=== PATIENT | male | born 1935 | race Hispanic/Latino ===

== ENCOUNTER 2021-04-21 06:07 | Day surgery (SDC) | payer MEDICARE ==
[2021-04-17 11:38] LABS: Hematocrit 43.4 % (35.5-45.6); Hemoglobin 14.4 gm/dl (11.8-15.2); Mean Corpuscular HGB Conc 33 % (32-34); Mean Corpuscular Volume 88 fl (84-94); Platelet Count 224 K/mm3 (140-440); Red Blood Count 4.91 M/mm3 (3.65-5.03); Red Cell Distribution Width 17.6 % (13.2-15.2)
[2021-04-17 12:20] LABS: Alanine Aminotransferase 10 units/L (7-56); Albumin 4.4 g/dL (3.9-5); BUN/Creatinine Ratio 23; Blood Urea Nitrogen 18 mg/dL (9-20); Calcium 9.9 mg/dL (8.4-10.2); Hemolysis Index 2
[2021-04-21] MEDS ORDERED: LACTATED RINGERS 1,000 ML ONE (07:00)
--- NOTE | 2021-04-21 07:28 | Anesthesia Consultation ---
Anesthesia Consult and Med Hx Date of service: 04/21/21 - Airway Anesthetic Teeth Evaluation: Good, Bridges (left upper) ROM Head & Neck: Adequate Mental/Hyoid Distance: Adequate Mallampati Class: Class II Intubation Access Assessment: Probably Good - Pre-Operative Health Status ASA Pre-Surgery Classification: ASA3 Proposed Anesthetic Plan: General - Pulmonary Hx Smoking: Yes (STOPPED 1966) Hx Sleep Apnea: No (IDRIS PRE SCREEN HIGH RISK) - Cardiovascular System Hx Hypertension: Yes (2003) Hx Coronary Artery Disease: Yes (HX LEFT ATRIAL ENLARGEMENT) Hx Heart Attack/AMI: No (CABG x4, 2004) Hx Percutaneous Transluminal Coronary Angioplasty (PTCA): Yes (x1, 2005, EF-50-55%) Hx Peripheral Vascular Disease: Yes (MERYL LEGS) - Central Nervous System Hx Back Pain: Yes (s/p lumbar fusion) Hx Psychiatric Problems: No - Gastrointestinal Hx Gastroesophageal Reflux Disease: Yes (under control) - Endocrine Hx Cirrhosis: No Hx Liver Disease: No (pancreatitis) Hx Non-Insulin Dependent Diabetes: Yes - Hematic Hx Anemia: No - Other Systems Hx Cancer: No
--- NOTE | 2021-04-21 07:30 | Anesthesia Day of Surgery ---
Anesthesia Day of Surgery - Day of Surgery Patient Examined: Yes Patient H&P Reviewed: Yes Patient is NPO: Yes Beta Blockers: Yes Cardiac Clearance: Yes
[2021-04-21] MEDS ORDERED: ONDANSETRON 4 MG/2 ML INJ IV PRN (07:33)
[2021-04-21] MEDS ORDERED: HYDROmorphone 1 MG/1 ML INJ IV PRN ×2 (07:33→08:00)
[2021-04-21] MEDS ORDERED: propofoL 200 MG/20 ML VIAL IV ONE (07:35)
[2021-04-21] MEDS ORDERED: ROCURONIUM 50 MG/5 ML INJ IV ONE (07:39)
[2021-04-21] MEDS ORDERED: LIDOCAINE MPF (2%) 20 MG/1 ML VIAL 5 ML ONE (07:39)
[2021-04-21] MEDS ORDERED: FAMOTIDINE 20 MG/2 ML INJ IV NR (08:00)
[2021-04-21] MEDS ORDERED: LACTATED RINGERS 1,000 ML IV SCH (08:00)
[2021-04-21] MEDS ORDERED: NEOMY 40 MG/POLYMYXIN B 200,000 UNITS/ML (GU) AMPULE IR ONE ×2 (09:00)
[2021-04-21] MEDS ORDERED: SODIUM CHLORIDE 0.9% IRR 1,500 ML BOTTLE IR ONE (09:00)
[2021-04-21] MEDS ORDERED: BUPIVACAINE/PF (0.25%) 2.5 MG/ML 30 ML VIAL INFILTRATI ONE (09:00)
[2021-04-21] MEDS ORDERED: GLYCOPYRROLATE 0.4 MG/2 ML INJ ONE (09:25)
[2021-04-21] MEDS ORDERED: ONDANSETRON 4 MG/2 ML INJ ONE (09:25)
[2021-04-21] MEDS ORDERED: NEOSTIGMINE 10MG/10 ML INJ MDV ONE (09:26)
--- NOTE | 2021-04-21 10:22 | Discharge Summary ---
Short Stay Discharge Plan Activity: other (no straining ) Weight Bearing Status: Full Weight Bearing Diet: low fat, low cholesterol, low salt Wound: open to air Special Instructions: other (ice x 24 hrs ) Durable Medical Equipment Needed Upon Discharge: other (remove dressing in am ) Follow up with: KARLA JOEL MD [Primary Care Provider] - 7 Days PAVEL COATS MD [Staff Physician] - 7 Days
--- NOTE | 2021-04-21 10:23 | Post Operative Note ---
Pre-op diagnosis: rih Findings: large rih Procedure: rih repair Anesthesia: GETA Surgeon: PAVEL COATS Photoengraving Machine Operator/Tender: HAKAN MENG Estimated blood loss: minimal Pathology: list (sac) Specimen disposition: to lab Condition: stable Disposition: PACU
--- NOTE | 2021-04-21 10:47 | Operative Report ---
DATE OF SURGERY: 04/21/2021 PREOPERATIVE DIAGNOSES: Large painful right inguinal hernia. POSTOPERATIVE DIAGNOSES: Large painful right inguinal hernia. PROCEDURE: Right inguinal hernia repair with a plug and mesh. SURGEON: Neeraj Schmidt MD ANESTHESIA: General. FINDINGS: This is a gentleman who we have been following for a while. His hernia has gotten bigger and more painful. He now presents for repair. All risks and options were discussed. We discussed laparoscopic robotic or open. He now presents for open right inguinal hernia repair. DESCRIPTION OF PROCEDURE: The patient was brought to the operating room and placed on the operating table. Following induction of anesthesia, placed over the break in the table, prepped and draped in usual sterile fashion. An oblique incision made over the defect, carried through to the external oblique aponeurosis. The ring was partially opened from the sac and external oblique aponeurosis was opened. We dissected the cord free and so the sac anteromedially. The sac was quite prominent and carried down to the external ring. This was dissected off the cord, opened and then reduced and suture ligated under direct vision. The cord was then freed of all the surrounding attachments and the sac reduced back in the preperitoneal space. A small area of fatty tissue was trimmed as needed and a plug was placed in this very large defect. This was secured, so it would not migrate and the keyhole mesh was used and circumferential sutures were placed with Ethibond. Wound was copiously irrigated throughout the case with antibiotic solution. External oblique aponeurosis was closed with a 2-0 Vicryl, superficial fascia with 3-0 Vicryl and skin with clips and brought to recovery room, minimal blood loss, less than 3 mL, brought to recovery in stable condition. TID: [id number] RECEIPT: [id number] CHIARA/PRISCILLA
[2021-04-21] MEDS ORDERED: ACETAMINOPHEN 325 MG TAB ONE (11:14)
[2021-04-21] MEDS ORDERED: traMADol 50 MG TAB PO PRN (15:09)
[2021-04-21] MEDS ORDERED: ACETAMINOPHEN 325 MG TAB PO PRN (15:09)
[2021-04-21 16:26] VITALS: BP 128/53
--- NOTE | 2021-04-21 18:52 | Post Anesthesia Evaluation ---
- Post Anesthesia Evaluation Patient Participated: Yes Airway Patent: Yes Stable Respiratory Function: Yes Nausea/Vomiting: No Temp > 96.8F: Yes Pain Manageable: Yes Adequeate Hydration: Yes Anesthesia Complications: No Block Receding Appropriately: Not Applicable Patient on Ventilator: No
== END 2021-04-21 11:20 | disposition home or self-care (01) ==
LOC: OR 06:07
PROVIDERS: ATTEND Urology
DX: K40.90 Unilateral inguinal hernia, without obstruction or gangrene, not specified as recurrent (principal); Z20.822 Contact with and (suspected) exposure to COVID-19; I25.10 Atherosclerotic heart disease of native coronary artery without angina pectoris; E78.00 Pure hypercholesterolemia, unspecified; I48.91 Unspecified atrial fibrillation; I10 Essential (primary) hypertension; K21.9 Gastro-esophageal reflux disease without esophagitis; Z88.0 Allergy status to penicillin; Z88.8 Allergy status to other drugs, medicaments and biological substances; Z98.890 Other specified postprocedural states; Z79.899 Other long term (current) drug therapy; Z87.891 Personal history of nicotine dependence; Z95.1 Presence of aortocoronary bypass graft
CPT/HCPCS: 36415; 49505; 80053; 82962; 85027; 88302; J1170; J1815; J1956; J2405; J2704; J2710; J3490; J7120; U0003; C1781